=== PATIENT | male | born 1940 | race Caucasian/White ===

== ENCOUNTER 2020-05-27 12:13 | Inpatient (IN) | payer OTHER ==
[~2020-05-27] VITALS: Ht 167.6 cm; Wt 68.0 kg
[2020-05-27 12:22] VITALS: Ht 167.6 cm; Wt 68.0 kg
--- NOTE | 2020-05-27 12:37 | NUR ---
PT C/O OF CONSTANT 5/10 EPIGASTRIC PAIN FOR X1 AND A HALF WEEKS, DR. PAN AT BEDSIDE FOR MSE.
--- NOTE | 2020-05-27 12:48 | NUR ---
LAB AT BEDSIDE FOR BLOOD DRAW
--- NOTE | 2020-05-27 12:53 | NUR ---
ARTURO DOWLING AT BEDSIDE FOR EKG
[2020-05-27 13:09] LABS: CALCIUM 9.1 mg/dL (8.5-10.1); CHLORIDE SERUM 99 mmol/L (98-107); CREATININE SERUM 0.8 mg/dL (0.7-1.3); GLUCOSE SERUM 128 mg/dL (74-106); POTASSIUM SERUM 3.6 mmol/L (3.5-5.1); SODIUM SERUM 132 mmol/L (136-145)
[2020-05-27 13:15] LABS: ALBUMIN 3.5 g/dL (3.4-5.0); ALKALINE PHOSPHATASE 167 U/L (46-116); ALT/SGPT 41 U/L (16-63); AST/SGOT 26 U/L (15-37); BILIRUBIN TOTAL 0.59 mg/dL (0.20-1.00); LIPASE 116 IU/L (73-393)
[2020-05-27 13:51] LABS: BASOPHIL % 0.4 % (0-2); PLATELET COUNT 218 x10^3mcL (130-400); RED CELL DISTRIBUTION WIDTH 13.2 % (11.5-14.5)
--- NOTE | 2020-05-27 15:00 | NUR ---
DR PAN AT BEDSIDE FOR REEVAL
--- NOTE | 2020-05-27 15:37 | NUR ---
PT TAKEN TO CT SCAN
--- NOTE | 2020-05-27 16:37 | NUR ---
RECEIVED A CALL FROM SEWING ROOM SUPERVISOR. IV IN L AC INFILTRATED DURING IV CONTRAST. STARTED A NEW IV SL IN R AC 20G AND FLUSHES FREELY. TECH TO COMPLETE EXAM. LAC SWOLLEN AND REDDENED AND TECH APPLIED WARM COMPRESS TO SITE AT THIS TIME
--- NOTE | 2020-05-27 17:34 | NUR ---
PROVIDED MORE COLD COMPRESS FOR LEFT AC SITE DUE TO INFILTRATION, PT DENIES PAIN, AWAITING MD FOR REASSESSMENT/PLAN OF CARE, REMOVED IV AT LEFT AC, CATHETER INTACT.
--- NOTE | 2020-05-27 18:53 | NUR ---
ADMISSION RESIDENT AT BEDSIDE TALKING WITH PT AT THIS TIME. VSS AND NO DISTRESS NOTED
--- NOTE | 2020-05-27 19:07 | NUR ---
REPORT RECEIVED FROM TONYA ORTEGA FOR CONTINUITY OF CARE. PATIENT IN STABLE CONDITION. NO SIGNS OF DISTRESS NOTED.
--- NOTE | 2020-05-27 19:19 | NUR ---
REPORT GIVEN TO LELA ELEVATOR CONSTRUCTOR HELPER RN
--- NOTE | 2020-05-27 19:25 | NUR ---
SPOKE WITH PB BLACKWELL [phone] (DAUGHTER) REGARDING PATIENT ADMISSION TO HOSPITAL PER PHYSICIAN RECOMMENDATIONS. PB TO SPEAK WITH PATIENT BY CALLING PATIENT'S CELL PHONE. PATIENT MADE AWARE.
[2020-05-27] MEDS ORDERED: VITAMIN D3 COM1 EACH PO (20:09)
[2020-05-27] MEDS ORDERED: AMLODIPINE BESYL5 M2 PO (20:10)
[2020-05-27] MEDS ORDERED: ACID REDUCER20 MG PO (20:11)
[2020-05-27] MEDS ORDERED: HYDRALAZINE HCL50 MG PO (20:11)
[2020-05-27] MEDS ORDERED: BIDIL TABLET1 EACH PO (20:12)
[2020-05-27 20:34] LABS: MAGNESIUM 1.7 mg/dL (1.8-2.4); PHOSPHOROUS 3.3 mg/dL (2.5-4.9)
[2020-05-27 20:49] LABS: CHOLESTEROL/HDL RATIO 2.9
[2020-05-27] MEDS ORDERED: MELOXICAM15 M1 PO (21:04)
[2020-05-27] MEDS ORDERED: MONTELUKAST SOD10 M1 PO (21:05)
[2020-05-27] MEDS ORDERED: AMARYL2 MG PO (21:06)
[2020-05-27] MEDS ORDERED: NITROGLYCERIN0.4 MG SL (21:06)
[2020-05-27] MEDS ORDERED: SIMVASTATIN10 M1 PO (21:07)
[2020-05-27] MEDS ORDERED: LOT10 PO (21:07)
[2020-05-27 21:08] LABS: FREE T4 1.25 ng/dL (0.76-1.46); FREE THYROXINE INDEX 3.5 ug/dL (1.4-4.5); T4(THYROXINE) 9.8 ug/dL (4.7-13.3)
[2020-05-27] MEDS ORDERED: GLUMETZA1000 MG PO (21:08)
[2020-05-27] MEDS ORDERED: BRIMONIDINE TART5 M1 OU (21:08)
[2020-05-27 21:18] LABS: T3 TOTAL 1.36 ng/mL
--- NOTE | 2020-05-27 21:23 | NUR ---
REPORT GIVEN TO TONYA DILLON FOR CONTINUITY OF CARE.
--- NOTE | 2020-05-27 21:27 | NUR ---
SPOKE WITH JACINTO SLAUGHTER ABOUT PATIENT REQUIRING COVID STEPHENIE SWAB PRIOR TO BEING SENT TO FLOOR.
[2020-05-27 21:35] LABS: microscopic required? NO
[2020-05-27 21:48] LABS: UA SPECIFIC GRAVITY <=1.005 (1.005-1.035); urine erythrocyte NEGATIVE (NEGATIVE)
[2020-05-27 21:59] LABS: AMPHETAMINE QUAL UR NONE DETECTED (See below)
--- NOTE | 2020-05-27 22:22 | NUR ---
PATIENT RESTING AT THE MOMENT. NO DISTRESS NOTED.
[2020-05-27 23:04] VITALS: BP 144/73
--- NOTE | 2020-05-27 23:16 | NUR ---
RECEIVED PT FROM ER, PT ADMIT FOR ABD PAIN/PANCREATIC CA. PT IS A/O X4, VERBAL RESPONSIVE LUNG SOUND CLEAR BILATERAL, NO COUGH, NO SOB. PT DENY ANY CHEST PAIN OR DISCOMFORT,BOWEL SOUND PRESENT ALL 4 QUADRANTS, NO DISTENTION, NO TENDER. C/O MILD PAIN 2/10. PEDAL PULSE PRESENT BOTH FEET, NO EDEMA, IV AT RIGHT FA, NO LEAKING. NO INFILTATION. ALL ADLS ASSIST, ALL NEED MET, CALL LIGHT IN REACH, WILL CONTINUE TO MONITOR.
--- NOTE | 2020-05-28 06:43 | NUR ---
PT IS BEDRESTING. AAO X4, WELSH SPEAKING ONLY. NO PAIN COMPLAINED, DENIED SOB. SLEPT WELL LAST NIGHT LAST NIGHT. PATIENT IS NPO EXCEPT FOR MEDS, BLOOD SUGAR WAS 203, HOLD INSULIN AND AWARE. WILL CONTINUE TO MONITOR PATIENT AND ENDORSE TO DAY SHIFT.
--- NOTE | 2020-05-28 07:00 | NUR ---
PT. RECEIVED IN BED ALERT AND ORIENTED*4, AMERICAN SPEAKING.CARE ASSURED VIA COLLECTION SUPPORT SPECIALIST IN AMERICAN AND PLAN OF CARE DISCUSSED.PT DENIES ANY ABD. PAIN @ THIS TIME.CONSULT WITH DR CASTRO (GI) PENDING.NPO EXCEPT MEDS NOTED.AFEBRILE.B/P STABLE. NEEDS ARE BEING MET.
[2020-05-28 07:07] LABS: BASOPHIL % 0.3 % (0-2); PLATELET COUNT 214 x10^3mcL (130-400); RED CELL DISTRIBUTION WIDTH 12.8 % (11.5-14.5)
[2020-05-28 08:00] LABS: ALBUMIN 3.4 g/dL (3.4-5.0); ALKALINE PHOSPHATASE 166 U/L (46-116); ALT/SGPT 38 U/L (16-63); AST/SGOT 25 U/L (15-37); BILIRUBIN TOTAL 0.48 mg/dL (0.20-1.00); CALCIUM 9.3 mg/dL (8.5-10.1); CARBON DIOXIDE 23.8 mmol/L (21-32); CHLORIDE SERUM 100 mmol/L (98-107); CREATININE SERUM 0.7 mg/dL (0.7-1.3); GLUCOSE SERUM 195 mg/dL (74-106); MAGNESIUM 1.8 mg/dL (1.8-2.4); PHOSPHOROUS 3.4 mg/dL (2.5-4.9); POTASSIUM SERUM 3.8 mmol/L (3.5-5.1); SODIUM SERUM 136 mmol/L (136-145)
[2020-05-28 08:11] VITALS: BP 143/79
[2020-05-28 12:04] VITALS: BP 113/62
[2020-05-28 16:23] VITALS: BP 115/64
[2020-05-28 16:36] VITALS: BP 97/56
--- NOTE | 2020-05-28 16:42 | NUR ---
PT. RESTING QUIETLY IN BED.MEDICATED FOR ABD. PAIN WITH NORCO AND PT NOW COMFORTABLE,SLEPT ON AND OFF.UPDATED PT'S DTR (ANN) ON STATUS AND DR MCDONALD MADE AWARE OF FAMILY REQUESTING FOR AN UPDATE.B/P STABLE.AFEBRILE.CT GUIDED BIOPSY OF THE PANCREASE PENDING.NEEDS ARE BEING MET.BED IN LOW SAFE POSITION. CALL LIGHT WITHIN REACH.
[2020-05-28 20:24] VITALS: BP 93/56
[2020-05-29 05:38] VITALS: BP 121/69
--- NOTE | 2020-05-29 06:32 | NUR ---
Pt currently in bed alert and oriented times 4. Pt slept well throughtout the night. Pt kept NPO except meds after midnight for up coming procedure. Tylenol given as ordered this morning for Temp of 100.6. Will continue to monitor and endorse care to oncoming shift nurse. Safety measures maintained-Bed in low position and call light within easy reach.
--- NOTE | 2020-05-29 07:03 | NUR ---
RECEIVED PT FROM HUNTER GUIDE RN. AOX4 ABLE TO MAKE NEEDS KNOWN, DENIES GONZALEZ/DIZZINESS. ABLE TO FOLLOW COMMANDS, WOLOF SPEAKING ONLY. LUNGS CTA, DENIES SOB/COUGH, RESP E/U, ON RA. ABDOMEN SOFT/ROUND, DENIES N/V/D, BOWEL SOUNDS HYPOACTIVE. VOIDS FREELY. AMBULATORY BRP, SKIN INTACT. NO C/O PAIN AT THIS TIME. IV TO RFA FLUSHED. CALL LIGHT IN REACH, WILL CONTINUE TO MONITOR.
[2020-05-29 07:31] LABS: CALCIUM 8.9 mg/dL (8.5-10.1); CARBON DIOXIDE 26.3 mmol/L (21-32); CHLORIDE SERUM 100 mmol/L (98-107); CREATININE SERUM 0.8 mg/dL (0.7-1.3); GLUCOSE SERUM 163 mg/dL (74-106); MAGNESIUM 1.8 mg/dL (1.8-2.4); POTASSIUM SERUM 3.9 mmol/L (3.5-5.1); SODIUM SERUM 133 mmol/L (136-145)
[2020-05-29 07:43] LABS: BASOPHIL % 0.5 % (0-2); PLATELET COUNT 209 x10^3mcL (130-400); RED CELL DISTRIBUTION WIDTH 12.4 % (11.5-14.5)
[2020-05-29 08:20] VITALS: BP 117/72
[2020-05-29 09:05] LABS: ALPHA FETOPROTEIN TUMOR MARKER 1.9 ng/mL (0.0-8.3)
[2020-05-29 12:20] VITALS: BP 114/62
--- NOTE | 2020-05-29 12:23 | NUR ---
DR GODINEZ AT BEDSIDE TO SEE PT. PER . PT SHOULD STAY UNTIL SUNDAY TO DO CT GUIDED LIVER BIOPSY, AN OUTPATIENT F/U WOULD TAKE 2-3 WEEKS. STATED HE WOULD COMMUNICATE WITH RESIDENTS THAT PT WAS AGREEABLE TO STAYING.
[2020-05-29 16:46] VITALS: BP 122/76
[2020-05-29 21:56] VITALS: BP 133/75
[2020-05-30 05:09] VITALS: BP 130/71
--- NOTE | 2020-05-30 06:30 | NUR ---
Pt currently in bed alert and oriented times 4. Pt slept well throughtout the night with no changes in condition this shift. Pt medicated with [place] once this shift for sharp abdominal pain. Pt reports adequate pain management with norco as ordered. Pt BS this morning 165 covered with 3 units regular insulin. Safety measures maintained. Bed in low position and call light within easy reach.
--- NOTE | 2020-05-30 07:15 | NUR ---
RECEIVED PT FROM INGOT SUPERVISOR RN. AOX4 ABLE TO MAKE NEEDS KNOWN, MONGOLIAN SPEAKING ONLY, ABLE TO FOLLOW COMMANDS, DENIES GONZALEZ/DIZZINESS. PULSES PALPABLE, NO EDEMA NOTED, CAP REFILL <3 SEC. LUNGS CTA, DENIES SOB/COUGH, RESP E/U, ON RA. ABDOMEN SOFT/ROUND, DENIES N/V/D, BOWEL SOUNDS ACTIVE, C/O ABD PAIN LAST NIGHT, WAS MEDICATED WITH NORCO. AMBULATORY PER BRP. SKIN INTACT. IV TO RFA IN PLACE, CDI. CALL LIGHT IN REACH, WILL CONTINUE TO MONITOR.
[2020-05-30 07:24] LABS: CALCIUM 8.7 mg/dL (8.5-10.1); CARBON DIOXIDE 25.5 mmol/L (21-32); CHLORIDE SERUM 101 mmol/L (98-107); CREATININE SERUM 0.8 mg/dL (0.7-1.3); GLUCOSE SERUM 161 mg/dL (74-106); POTASSIUM SERUM 3.8 mmol/L (3.5-5.1); SODIUM SERUM 137 mmol/L (136-145)
[2020-05-30 07:25] LABS: BASOPHIL % 0.3 % (0-2); PLATELET COUNT 202 x10^3mcL (130-400); RED CELL DISTRIBUTION WIDTH 12.4 % (11.5-14.5)
[2020-05-30 08:36] VITALS: BP 141/72
[2020-05-30 12:49] VITALS: BP 100/61
--- NOTE | 2020-05-30 13:15 | NUR ---
Initial Nutrition Assessment: DixonChristian 253D Dx: Abdominal pain and metastatic pancreatic cancer PMHx: HTN, DM, HLD and BPH PSHx: Appendectomy, Hernia Repair Labs: (05/30) BH, Hct:41L (05/27) A1c:8.7H Meds: Apresoline, Humulin PRN, Imdur, Simvistatin,[place], Norvasc, Pancrease Prilosec, Senokot, Singulair, Tylenol, Zestril and Zofran Diet: Cardiac CCHO PO intake since admission: (05/28) L:100% D:100% (05/29) B: NPO L:100% D:100%(05/30) B:100% Ht: 66in, 5'6" Wt:150#, 68.039kg BMI:24.2kg/m2 (normal) Bed scale:68.5kg IBW: 142#, 65kg %IBW: 106% UBW: 162# per H&P Age: 79 y/o male Food Allergies: NKFA Skin condition: intact Gutierrez:21 Edema: none Last BM: 05/27 Per H&P, pt with c/o abd pain for the last 10 days. Pain worsens after meals and is now constant. Pt reports to losing 12# in the past month. Per progress note 05/29, Oncology was consulted and Dr. Lutz had a conversation with the patient regarding CT guided biopsy of the liver done inpatient and outpatient. Patient would like to get it done soon. Patient will wait until Sunday for biopsy. Pending CEA, AFP, Ca 19-9. RD Note, pt was observed sleeping and unarousable. Pt eating 100% and per RN note pt with c/o abd pain the previous night and was given norco. RD to add Boost Glucose Control BID to prvent any further weight loss and to meet protein and energy needs. Problem with: N/V/D/C: no Problems with: Chewing/Swallowing: no on regular textured diet Current appetite: good Recent wt change:-12# within the past month %wt change: 7.4% weight change (significant) Vitamin/Supplement use: Vitamin D3, Special diet at home: regular per admission assessment Physical activity: unable to assess Nutrition education given: no pt asleep Food-drug interactions?N/A Education given? no Estimated Nutritional Needs Based on actual body weight:68kg Energy: 0-83179nhqf/day (30-35kcal/kg for oncology) Protein:82-102 g/day (1.2-1.5g/kg for oncology) Fluid: 2040-2308mL/day (1 mL/kcal) Nutrition Diagnosis: 1. Increased protein/energy intake related to increased metabolic demands as evidenced by pt with Metastatic pancreatic cancer and liver mass. 2. Unintentional wt loss related pt with metastatic pancreatic cancer and liver mass as evidenced by 12# weight loss and 7.4% weight change within the past month. Intervention 1. Recommend continue cardiac CCHO diet. 2. Recommend adding Boost Glucose control BID provides as additional 500kcal, 28 g protein) to prevent further weight loss and to meet kcal and protein needs. Monitor/Evaluate Goal: PO intake at least 75% of estimated needs Monitor: PO intake, Labs, GI function F/U in 3-5 days as moderate risk: 06/02-06/04
--- NOTE | 2020-05-30 13:17 | NUR ---
1. Recommend continue cardiac CCHO diet. 2. Recommend adding Boost Glucose control BID provides as additional 500kcal, 28 g protein) to prevent further weight loss and to meet caloric and protein needs.
[2020-05-30 16:45] VITALS: BP 96/56
[2020-05-30 21:29] VITALS: BP 119/68
[2020-05-31] VITALS (7 sets, daily range): BP systolic 102–130; BP diastolic 07–70
--- NOTE | 2020-05-31 06:27 | NUR ---
Pt currently in bed alert and oriented times 4. Pt slept well throughout the night with no out of control symptoms . Pt medicated with Hunt for sharp abdominal pain once this shift. Pt reports good relief of pain with Hunt as ordered. Nurse instructed pt not to eat or drink after midnight for possible procedure today-Pt verbalized understanding on instructions given and agreed with the plan. Safety measures in placed-Bed in low position and call light within easy reach.
[2020-05-31 08:08] LABS: BASOPHIL % 0.3 % (0-2); PLATELET COUNT 193 x10^3mcL (130-400); RED CELL DISTRIBUTION WIDTH 13.2 % (11.5-14.5)
[2020-05-31 08:28] LABS: CALCIUM 9.2 mg/dL (8.5-10.1); CARBON DIOXIDE 24.9 mmol/L (21-32); CHLORIDE SERUM 101 mmol/L (98-107); CREATININE SERUM 0.8 mg/dL (0.7-1.3); GLUCOSE SERUM 170 mg/dL (74-106); POTASSIUM SERUM 3.9 mmol/L (3.5-5.1); SODIUM SERUM 137 mmol/L (136-145)
--- NOTE | 2020-05-31 16:13 | NUR ---
DAY SHIFT Patient received awake and alert, able to make needs known. Able to communicate in basic greek, primary language is greek. Was admitted with abdominal pain and metastatic pancreatitis. Patient went to CT for a CT guided biopsy. Biopsy was taken from liver. On room air, tolerating well. Continent of GI/. Able to ambulate well without assist and verbalized he was aware of his own limitations. Skin is intact. No complaints of pain needing pain medication. Stated pain was "okay" right now. Received with IV in right FA but it became infiltrated. New IV started on left FA 20 gauge. 500cc bolus running now d/t SBP in 80's post procedure. Per Dr [place] - after bolus patient is okay to discharge.
[2020-05-31] MEDS ORDERED: MOBIC15 MG PO (17:05)
== END 2020-05-31 17:49 | disposition home or self-care (01) | DRG 436 ==
LOC: ED 12:13 → MU 18:29
PROVIDERS: Emergency Medicine; ADMIT Family Medicine; ATTEND Family Medicine
PROC: 0FB03ZX Excision of Liver, Percutaneous Approach, Diagnostic (ICD-10-PCS; principal; 2020-05-31)
DX: C25.9 Malignant neoplasm of pancreas, unspecified (principal); E87.1 Hypo-osmolality and hyponatremia; C78.7 Secondary malignant neoplasm of liver and intrahepatic bile duct; Z20.828 Contact with and (suspected) exposure to other viral communicable diseases; E83.42 Hypomagnesemia; I10 Essential (primary) hypertension; I25.10 Atherosclerotic heart disease of native coronary artery without angina pectoris; E78.5 Hyperlipidemia, unspecified; E11.65 Type 2 diabetes mellitus with hyperglycemia; N40.0 Benign prostatic hyperplasia without lower urinary tract symptoms; Z87.891 Personal history of nicotine dependence; Z90.49 Acquired absence of other specified parts of digestive tract; Z98.41 Cataract extraction status, right eye; Z98.42 Cataract extraction status, left eye; Z79.84 Long term (current) use of oral hypoglycemic drugs; Z23 Encounter for immunization; Z79.899 Other long term (current) drug therapy
CPT/HCPCS: 82962; 83880; 84439; 90658; 97116-GP; C1894; G0378; J2001; J7030; J7040; Q9967